=== PATIENT | female | born 1995 | race Caucasian/White ===

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

== ENCOUNTER → 2017-02-27 | Outpatient (CLI) | payer BC | END | disposition home or self-care (01) | LOC: GMAJ 16:32 | PROVIDERS: ATTEND Family Medicine | DX: R10.9 Unspecified abdominal pain (principal) ==

== ENCOUNTER → 2019-03-07 | Outpatient (CLI) | payer BC | LOC: GMAJ 14:47 | PROVIDERS: ATTEND Family Medicine | DX: R53.83 Other fatigue (principal) ==

== ENCOUNTER → 2019-03-08 | Outpatient (CLI) | payer BC ==
--- NOTE | 2019-03-08 22:37 | MRI ---
EXAM DESCRIPTION: Lumbar Spine w/o Contrast : Magnetic Resonance Imaging. CLINICAL HISTORY: DISC DISPLACEMENT COMPARISON: None. TECHNIQUE: Multiplanar, multiple standard sequences, non contrast MRI, lumbar spine. FINDINGS: L5-S1: The disc is well visualized on axial T2 series 501, image 3. Normal signal in the disc with disc space preserved. No bulging. Minimal canal narrowing. Posterior elements unremarkable. Mild bilateral foraminal narrowing. L4-L5: Desiccation of the disc. Tiny posterior midline bulge. Mild canal narrowing. Posterior elements unremarkable. Mild bilateral foraminal narrowing. L3-L4: Minimal desiccation anterior disc space preserved. Posterior elements unremarkable. Canal and foramina are patent. L2-L3: Minimal desiccation of the anterior disc. Disc space preserved with no bulging. Posterior elements unremarkable. Canal and foramina are patent. L1-L2: Minimal desiccation of the anterior disc. Disc space preserved. No bulging. Posterior elements unremarkable. Canal and foramina are patent. T12-L1: Normal signal in the disc with disc space preserved. No bulging. Posterior elements are unremarkable. Canal and foramina are patent. Conus terminates just above the disc space. Anatomic alignment and curvature. Paravertebral soft tissues appear physiologic.. Distal cord normal signal and caliber. Normal marrow signal in the remaining vertebral bodies and the posterior elements. Vertebral bodies are not compressed at any level. IMPRESSION: 1. Minimal bony canal narrowing L5-S1. Bilateral foramina are patent. Normal disc. 2. Desiccation of the L4-L5 disc with tiny posterior bulge. Minimal canal narrowing. Bilateral foramina are patent. No nerve impingement. 3. Multiple discs with anterior desiccation but disc space preserved and no lateral or posterior bulging. Electronically signed by: Andres Schumacher MD 03/08/2019 10:36 PM CDT
== END ==
LOC: MRI 14:04
PROVIDERS: ATTEND Family Medicine
DX: M51.27 Other intervertebral disc displacement, lumbosacral region (principal); M51.36 Other intervertebral disc degeneration, lumbar region